=== PATIENT | male | born 1990 | race Two or more races ===

== ENCOUNTER 2024-10-16 01:30 | Emergency (ER) | payer MEDICAID ==
[~2024-10-16] VITALS: Ht 170.2 cm; Wt 81.6 kg
[2024-10-16] MEDS ORDERED: CIPR7.5D9 EACH EAR (03:26)
[2024-10-16] MEDS ORDERED: ACETAMINOPHEN ES 500 MG TABLET ONE (03:32)
[2024-10-16] MEDS ORDERED: IBUPROFEN 600 MG TABLET ONE (03:33)
[2024-10-16] MEDS: IBUPROFEN 600 MG TABLET PO ONE (03:36)
[2024-10-16] MEDS: ACETAMINOPHEN ES 500 MG TABLET PO ONE (03:36)
[2024-10-16 03:52] VITALS: BP 126/72; TEMP 98.5; O2SAT 99
== END 2024-10-16 03:53 | disposition home or self-care (01) ==
LOC: ER 01:35
DX: H60.8X1 Other otitis externa, right ear (principal); F17.200 Nicotine dependence, unspecified, uncomplicated; Z60.2 Problems related to living alone